=== PATIENT | male | born 1995 | race Caucasian/White ===

== ENCOUNTER 2019-01-04 01:35 | Emergency (ER) | payer SELFPAY ==
[~2019-01-04] VITALS: Ht 175.3 cm; Wt 52.3 kg
[2019-01-04 01:38] VITALS: TEMP 98.5
[2019-01-04] MEDS ORDERED: CEPHALEXIN500 M1 PO (01:47)
[2019-01-04 02:55] VITALS: BP 111/68; PULSE 89
== END 2019-01-04 02:55 | disposition home or self-care (01) ==
LOC: COL.ER 01:35
DX: S42.002A Fracture of unspecified part of left clavicle, initial encounter for closed fracture (principal); Z23 Encounter for immunization; F90.9 Attention-deficit hyperactivity disorder, unspecified type; W22.8XXA Striking against or struck by other objects, initial encounter; Y92.410 Unspecified street and highway as the place of occurrence of the external cause